=== PATIENT | male | born 1995 | race African-American/Black ===

== ENCOUNTER 2017-03-26 14:15 | Emergency (ER) | payer SELFPAY ==
[~2017-03-26] VITALS: Ht 190.5 cm; Wt 75.0 kg
[~2017-03-26 14:15] MED LIST: AMOX500T PO; PRED20 PO; Z.0.NO CURRENT MEDS
[2017-03-26 14:16] VITALS: BP 119/70; PULSE 88; RESP 16; TEMP 98.9; O2SAT 98
[2017-03-26] MEDS ORDERED: SODIUM CHLOR 0.9% 1000 ML INJ 1,000 ML IV SCH (16:13)
[2017-03-26] MEDS ORDERED: SODIUM CHLORIDE 0.9% FLUSH 10 ML FLUSH IV FLUSH PRN (16:15)
[2017-03-26] MEDS ORDERED: ONDANSETRON HCL 4 MG/2 ML VIAL IVP ONE (16:15)
--- NOTE | 2017-03-26 16:23 | PD ---
HPI Chief Complaint: Abdominal Pain Time Seen by Provider: 16:08 Travel History International Travel<30 days: No Contact w/Intl Traveler<30days: No Traveled to known affect area: No History of Present Illness HPI 21 year old male presents to the ED for evaluation of 3 day history of N/V/D and abdominal pain. Gradual onset. Worsened by eating. Patient denies accompanying fever, chills, melena, hematochezia, dysuria, penile discharge. He denies sick contacts. He's been treating at home with ibuprofen with no improvement of symptoms. Patient also states that he has lost 15 pounds over "the last week or so." He states that his cat had fleas and he thinks that maybe the fleas bit him and gave him a tapeworm. PFSH Past Medical History Medical History: Denies Significant Hx Diminished Hearing: No Past Surgical History Appendectomy: Yes Social History Alcohol Use: Yes (SOCIAL) Tobacco Use: No (andrew) Substance Use: Yes (POT) Allergies-Medications (Allergen,Severity, Reaction): Coded Allergies: No Known Allergies (Unverified , 03/26/17) Reported Meds & Prescriptions Reported Meds & Active Scripts Active Reglan (Metoclopramide HCl) 10 Mg Tab 10 Mg PO TIDAC 7 Days Cipro (Ciprofloxacin HCl) 250 Mg Tab 250 Mg PO BID Lortab (Hydrocodone-Acetaminophen) 5-325 Mg Tab 1 Tab PO Q6H PRN Protonix (Pantoprazole Sodium) 40 Mg Tab 40 Mg PO DAILY Bentyl (Dicyclomine HCl) 10 Mg Cap 20 Mg PO QID 7 Days Deltasone (Prednisone) 20 Mg Tab 20 Mg PO BID Amoxicillin 500 Mg Cap 500 Mg PO TID Reported No Current Meds (Miscellaneous Medication) [facility] Review of Systems Except as stated in HPI: all other systems reviewed are Neg Physical Exam Narrative GENERAL: Well-nourished, well-developed nontoxic-appearing thin black male in no acute distress. SKIN: Focused skin assessment warm/dry. HEAD: Normocephalic. EYES: No scleral icterus. No injection or drainage. NECK: Supple, trachea midline. No JVD or lymphadenopathy. CARDIOVASCULAR: Regular rate and rhythm without murmurs, gallops, or rubs. RESPIRATORY: Breath sounds clear and equal bilaterally. No accessory muscle use. GASTROINTESTINAL: Abdomen soft, non-tender, nondistended. Palpable masses. Negative Bower's. Active bowel sounds. RECTAL EXAM: No masses or tenderness, stool is mucous, pink tinged. Guaiac positive. MUSCULOSKELETAL: No cyanosis, or edema. BACK: Nontender without obvious deformity. No CVA tenderness. Data Data Last Documented VS Vital Signs Date Time Temp Pulse Resp B/P (MAP) Pulse Ox O2 Delivery O2 Flow Rate FiO2 03/26/17 19:06 03/26/17 16:13 18 03/26/17 14:16 98.9 88 98 Orders Orders Complete Blood Count With Diff (03/26/17 16:13) Comprehensive Metabolic Panel (03/26/17 16:13) Lipase (03/26/17 16:13) Lactic Acid (03/26/17 16:13) Urinalysis - C+S If Indicated (03/26/17 16:13) Iv Access Insert/Monitor (03/26/17 16:13) Ecg Monitoring (03/26/17 16:13) Oximetry (03/26/17 16:13) NPO (03/26/17 16:13) Ondansetron Inj (Zofran Inj) (03/26/17 16:15) Sodium Chlor 0.9% 1000 Ml Inj (Ns 1000 M (03/26/17 16:13) Sodium Chloride 0.9% Flush (Ns Flush) (03/26/17 16:15) Famotidine Inj (Pepcid Inj) (03/26/17 16:30) Al-Mag Hy-Si 40-40-4 Mg/Ml Liq (Mag-Al P (03/26/17 16:30) Lidocaine 2% Viscous (Xylocaine 2% Visco (03/26/17 16:30) Mandatory Outpatient Referral (03/26/17 17:55) Potassium Chloride (Kcl) (03/26/17 18:45) Labs Laboratory Tests Test 03/26/17 16:21 03/26/17 17:55 White Blood Count 16.9 TH/MM3 Red Blood Count 5.19 MIL/MM3 Hemoglobin 12.9 GM/DL Hematocrit 39.5 % Mean Corpuscular Volume 76.2 FL Mean Corpuscular Hemoglobin 24.9 PG Mean Corpuscular Hemoglobin Concent 32.6 % Red Cell Distribution Width 15.7 % Platelet Count 435 TH/MM3 Mean Platelet Volume 7.6 FL Neutrophils (%) (Auto) 72.5 % Lymphocytes (%) (Auto) 14.6 % Monocytes (%) (Auto) 12.0 % Eosinophils (%) (Auto) 0.6 % Basophils (%) (Auto) 0.3 % Neutrophils # (Auto) 12.2 TH/MM3 Lymphocytes # (Auto) 2.5 TH/MM3 Monocytes # (Auto) 2.0 TH/MM3 Eosinophils # (Auto) 0.1 TH/MM3 Basophils # (Auto) 0.1 TH/MM3 CBC Comment DIFF FINAL Differential Comment Blood Urea Nitrogen 12 MG/DL Creatinine 0.99 MG/DL Random Glucose 77 MG/DL Total Protein 8.1 GM/DL Albumin 3.2 GM/DL Calcium Level 9.1 MG/DL Alkaline Phosphatase 87 U/L Aspartate Amino Transf (AST/SGOT) 8 U/L Alanine Aminotransferase (ALT/SGPT) 13 U/L Total Bilirubin 0.6 MG/DL Sodium Level 137 MEQ/L Potassium Level 3.2 MEQ/L Chloride Level 101 MEQ/L Carbon Dioxide Level 26.6 MEQ/L Anion Gap 9 MEQ/L Estimat Glomerular Filtration Rate 114 ML/MIN Lactic Acid Level 1.7 mmol/L Lipase 516 U/L Urine Color YELLOW Urine Turbidity CLEAR Urine pH 6.0 Urine Specific [place] 1.025 Urine Protein 30 mg/dL Urine Glucose (UA) NEG mg/dL Urine Ketones 10 mg/dL Urine Occult Blood TRACE Urine Nitrite NEG Urine Bilirubin NEG Urine Urobilinogen LESS THAN 2.0 MG/DL Urine Leukocyte Esterase NEG Urine RBC 2 /hpf Urine WBC 8 /hpf Urine Squamous Epithelial Cells <1 /hpf Urine Mucus FEW /lpf Microscopic Urinalysis Comment CULT NOT INDICATED MDM Medical Decision Making Medical Screen Exam Complete: Yes Emergency Medical Condition: Yes Differential Diagnosis GERD versus PUD versus gastritis versus gastroenteritis versus pancreatitis versus GI bleed versus other Narrative Course 21 year old male presents to the ED for evaluation of 3 day history of N/V/D and abdominal pain. Gradual onset. Worsened by eating. Patient denies accompanying fever, chills, melena, hematochezia, dysuria, penile discharge. He denies sick contacts. Patient also states that he has lost 15 pounds over "the last week or so." Vitals reviewed. Physical exam reveals a thin,nontoxic appearing black male in no acute distress. Abdominal exam is completely benign. Patient does have a guaiac positive rectal exam. IV was established. Patient was administered 1 L normal saline, 4 mg Zofran, Pepcid, GI cocktail. CBC: WBC 16.9 with left shift. Hemoglobin 12.9. CMP: Potassium 3.2. Albumin 3.2. Bilirubin 0.6. BUN 12, creatinine 0.99. Lactic acid 1.7. Lipase 516. UA: No culture indicated. I discussed the patient with Dr. Palmer. Dr. Palmer evaluated the patient and recommended pain control, atraumatic coverage for gastroenteritis, outpatient follow-up with the hydrometeorologist. I discussed this plan with the patient who is agreeable. He is prescribed Cipro, Bentyl, Reglan, Protonix and Lortab. A mandatory outpatient consult was placed with Dr. Monge. Discussed reasons to return to the ED. Patient acknowledged understanding of the discharge instructions. He is stable and discharged home. [facility] Point of Care Internal Pos. & Neg. Controls: Passed Fecal Specimen Occult Blood: Positive Diagnosis Primary Impression: GI bleed Qualified Codes: K29.71 - Gastritis, unspecified, with bleeding Additional Impression: Gastroenteritis Referrals: Nancy Monge MD Patient Instructions: Diet for Stomach Ulcers and Gastritis (ED), Gastroenteritis (ED), Gastrointestinal Bleeding (ED), General Instructions Additional Instructions: Rest, hydrate. Begin antibiotics today. Take medication as prescribed. Do not take ibuprofen for pain at home. An outpatient consult has been placed on your behalf. The hospital or the GI provider's office will call you to set up an outpatient appointment. RETURN TO THE ED IF YOUR SYMPTOMS WORSEN, particularly over the next 8 hours. Return to the ED for any urgent or emergent medical condition. Med/Other Pt SpecificInfo: Prescription(s) given Scripts Metoclopramide (Reglan) 10 Mg Tab 10 MG PO TIDAC for 7 Days, TAB 0 Refills Prov: Wilfredo Palmer MD 03/26/17 Ciprofloxacin (Cipro) 250 Mg Tab 250 MG PO BID for Infection, #6 TAB 0 Refills Prov: Wilfredo Palmer MD 03/26/17 Hydrocodone-Acetaminophen (Lortab) 5-325 Mg Tab 1 TAB PO Q6H Y for PAIN, #15 TAB 0 Refills Prov: Wilfredo Palmer MD 03/26/17 Pantoprazole (Protonix) 40 Mg Tab 40 MG PO DAILY for Reflux, #15 TAB 0 Refills Prov: Wilfredo Palmer MD 03/26/17 Dicyclomine (Bentyl) 10 Mg Cap 20 MG PO QID for Bowel Management for 7 Days, CAP 0 Refills Prov: Wilfredo Palmer MD 03/26/17 Disposition: 01 DISCHARGE HOME Condition: Stable Carmita Delgado Mar 26, 2017 16:23
[2017-03-26] MEDS ORDERED: ALUMINUM/MAGNESIUM/SIMETH 30 ML CUP PO ONE (16:30)
[2017-03-26] MEDS ORDERED: LIDOCAINE VISCOUS 2% SOLN 15 ML UDC PO ONE (16:30)
[2017-03-26] MEDS ORDERED: FAMOTIDINE 20 MG/2 ML VIAL IV PUSH ONE (16:30)
[2017-03-26 16:48] LABS: AUTOMATED NEUTROPHIL # 12.2 TH/MM3 (1.8-7.7); BASOPHIL # 0.1 TH/MM3 (0-0.2); BASOPHIL % 0.3 % (0.0-2.0); EOSINOPHIL # 0.1 TH/MM3 (0-0.4); EOSINOPHIL % 0.6 % (0.0-4.0); HEMATOCRIT 39.5 % (39.0-51.0); HEMO FLAGS DIFF FINAL; LYMPH % 14.6 % (9.0-44.0); LYMPHOCYTE # 2.5 TH/MM3 (1.0-4.8); MEAN CELL VOLUME 76.2 FL (80.0-100.0); MEAN CORPUSCULAR HEMOGLOBIN 24.9 PG (27.0-34.0); MEAN CORPUSCULAR HGB CONC 32.6 % (32.0-36.0); NEUT % 72.5 % (16.0-70.0); PLATELET COUNT 435 TH/MM3 (150-450); RED BLOOD COUNT 5.19 MIL/MM3 (4.50-5.90); RED CELL DISTRIBUTION WIDTH 15.7 % (11.6-17.2); WHITE BLOOD COUNT 16.9 TH/MM3 (4.0-11.0)
[2017-03-26 17:01] LABS: ALT (GPT) 13 U/L (12-78); ANION GAP 9 MEQ/L (5-15); AST (GOT) 8 U/L (15-37); BICARBONATE 26.6 MEQ/L (21.0-32.0); BLOOD UREA NITROGEN 12 MG/DL (7-18); CHLORIDE 101 MEQ/L (98-107); GLOMERULAR FILTRATION RATE 114 ML/MIN (>89); POTASSIUM 3.2 MEQ/L (3.5-5.1); SODIUM (NA) 137 MEQ/L (136-145)
[2017-03-26 17:03] LABS: ALKALINE PHOSPHATASE 87 U/L (45-117); TOTAL BILIRUBIN ADULT 0.6 MG/DL (0.2-1.0)
--- NOTE | 2017-03-26 17:55 | PD ---
Data Data Last Documented VS Vital Signs Date Time Temp Pulse Resp B/P (MAP) Pulse Ox O2 Delivery O2 Flow Rate FiO2 03/26/17 19:06 03/26/17 16:13 18 03/26/17 14:16 98.9 88 98 Orders Orders Complete Blood Count With Diff (03/26/17 16:13) Comprehensive Metabolic Panel (03/26/17 16:13) Lipase (03/26/17 16:13) Lactic Acid (03/26/17 16:13) Urinalysis - C+S If Indicated (03/26/17 16:13) Iv Access Insert/Monitor (03/26/17 16:13) Ecg Monitoring (03/26/17 16:13) Oximetry (03/26/17 16:13) NPO (03/26/17 16:13) Ondansetron Inj (Zofran Inj) (03/26/17 16:15) Sodium Chlor 0.9% 1000 Ml Inj (Ns 1000 M (03/26/17 16:13) Sodium Chloride 0.9% Flush (Ns Flush) (03/26/17 16:15) Famotidine Inj (Pepcid Inj) (03/26/17 16:30) Al-Mag Hy-Si 40-40-4 Mg/Ml Liq (Mag-Al P (03/26/17 16:30) Lidocaine 2% Viscous (Xylocaine 2% Visco (03/26/17 16:30) Mandatory Outpatient Referral (03/26/17 17:55) Potassium Chloride (Kcl) (03/26/17 18:45) Labs Laboratory Tests Test 03/26/17 16:21 03/26/17 17:55 White Blood Count 16.9 TH/MM3 Red Blood Count 5.19 MIL/MM3 Hemoglobin 12.9 GM/DL Hematocrit 39.5 % Mean Corpuscular Volume 76.2 FL Mean Corpuscular Hemoglobin 24.9 PG Mean Corpuscular Hemoglobin Concent 32.6 % Red Cell Distribution Width 15.7 % Platelet Count 435 TH/MM3 Mean Platelet Volume 7.6 FL Neutrophils (%) (Auto) 72.5 % Lymphocytes (%) (Auto) 14.6 % Monocytes (%) (Auto) 12.0 % Eosinophils (%) (Auto) 0.6 % Basophils (%) (Auto) 0.3 % Neutrophils # (Auto) 12.2 TH/MM3 Lymphocytes # (Auto) 2.5 TH/MM3 Monocytes # (Auto) 2.0 TH/MM3 Eosinophils # (Auto) 0.1 TH/MM3 Basophils # (Auto) 0.1 TH/MM3 CBC Comment DIFF FINAL Differential Comment Blood Urea Nitrogen 12 MG/DL Creatinine 0.99 MG/DL Random Glucose 77 MG/DL Total Protein 8.1 GM/DL Albumin 3.2 GM/DL Calcium Level 9.1 MG/DL Alkaline Phosphatase 87 U/L Aspartate Amino Transf (AST/SGOT) 8 U/L Alanine Aminotransferase (ALT/SGPT) 13 U/L Total Bilirubin 0.6 MG/DL Sodium Level 137 MEQ/L Potassium Level 3.2 MEQ/L Chloride Level 101 MEQ/L Carbon Dioxide Level 26.6 MEQ/L Anion Gap 9 MEQ/L Estimat Glomerular Filtration Rate 114 ML/MIN Lactic Acid Level 1.7 mmol/L Lipase 516 U/L Urine Color YELLOW Urine Turbidity CLEAR Urine pH 6.0 Urine Specific [place] 1.025 Urine Protein 30 mg/dL Urine Glucose (UA) NEG mg/dL Urine Ketones 10 mg/dL Urine Occult Blood TRACE Urine Nitrite NEG Urine Bilirubin NEG Urine Urobilinogen LESS THAN 2.0 MG/DL Urine Leukocyte Esterase NEG Urine RBC 2 /hpf Urine WBC 8 /hpf Urine Squamous Epithelial Cells <1 /hpf Urine Mucus FEW /lpf Microscopic Urinalysis Comment CULT NOT INDICATED MDM Medical Record Reviewed: Yes Supervised Visit with SUZAN: Yes Narrative Course CBC & BMP Diagram 03/26/17 16:21 Total Protein 8.1, Albumin 3.2 L, Calcium Level 9.1, Alkaline Phosphatase 87, Aspartate Amino Transf (AST/SGOT) 8 L, Alanine Aminotransferase (ALT/SGPT) 13, Total Bilirubin 0.6 I, Dr. Palmer, have reviewed the advance practice practitioner's documentation and am in agreement, met with the patient face to face, made the diagnosis, and the medical decision making was done by me. *My assessment and Findings: Presentation concerning for gastroenteritis with pancreatitis Scripts as below Follow up with GI Return precautions discussed. Please see PA note for additional information. Diagnosis Primary Impression: GI bleed Additional Impression: Gastroenteritis Referrals: Nancy Monge MD Patient Instructions: General Instructions, Gastrointestinal Bleeding (ED), Diet for Stomach Ulcers and Gastritis (ED), Gastroenteritis (ED) Additional Instruction: Rest, hydrate. Begin antibiotics today. Take medication as prescribed. Do not take ibuprofen for ear pain at home. Scripts Metoclopramide (Reglan) 10 Mg Tab 10 MG PO TIDAC for 7 Days, TAB 0 Refills Prov: Wilfredo Palmer MD 03/26/17 Ciprofloxacin (Cipro) 250 Mg Tab 250 MG PO BID for Infection, #6 TAB 0 Refills Prov: Wilfredo Palmer MD 03/26/17 Hydrocodone-Acetaminophen (Lortab) 5-325 Mg Tab 1 TAB PO Q6H Y for PAIN, #15 TAB 0 Refills Prov: Wilfredo Palmer MD 03/26/17 Pantoprazole (Protonix) 40 Mg Tab 40 MG PO DAILY for Reflux, #15 TAB 0 Refills Prov: Wlifredo Palmer MD 03/26/17 Dicyclomine (Bentyl) 10 Mg Cap 20 MG PO QID for Bowel Management for 7 Days, CAP 0 Refills Prov: Wilfredo Palmer MD 03/26/17 Disposition: 01 DISCHARGE HOME Condition: Stable Wilfredo Palmer MD Mar 26, 2017 17:55
[2017-03-26] MEDS ORDERED: PROT40TA PO (18:29)
[2017-03-26] MEDS ORDERED: DICY10 PO (18:29)
[2017-03-26] MEDS ORDERED: CIPR250T52 PO (18:29)
[2017-03-26] MEDS ORDERED: REGL10TA5 PO (18:29)
[2017-03-26] MEDS ORDERED: HYDR-3533 PO (18:29)
[2017-03-26 18:32] LABS: BLOOD, URINE TRACE (NEG); COMMENT (UR) CULT NOT INDICATED; CULTURE IF INDICATED CULT NOT INDICATED; GLUCOSE,URINE NEG (NEG); KETONE, URINE 10 mg/dL (NEG); MUCUS URINE FEW /lpf (OCC); NITRITE,URINE NEG (NEG); SQUAMOUS EPITHELIAL CELL URINE <1 /hpf (0-5); URINE COLOR YELLOW (YELLW/STRAW)
[2017-03-26] MEDS ORDERED: POTASSIUM CHLORIDE 20 MEQ CONTROLLED RELEASE TAB PO ONE (18:45)
== END 2017-03-26 19:12 | disposition home or self-care (01) ==
LOC: NEPD 14:15
DX: K92.2 Gastrointestinal hemorrhage, unspecified (principal); K52.9 Noninfective gastroenteritis and colitis, unspecified; Z79.899 Other long term (current) drug therapy
CPT/HCPCS: 80053; 81001; 83605; 83690; 85025; 96361; 96374; 96375; 99284; J2405; J7030

== ENCOUNTER 2017-03-27 07:03 | Emergency (ER) | payer SELFPAY ==
[~2017-03-27] VITALS: Ht 190.5 cm; Wt 75.0 kg
[~2017-03-27 07:03] MED LIST changes: +CIPR250T52 PO; +DICY10 PO; +HYDR-3533 PO; +PROT40TA PO; +REGL10TA5 PO
[2017-03-27 07:05] VITALS: BP 128/72; PULSE 90; RESP 15; TEMP 98.4; O2SAT 96
[2017-03-27] MEDS ORDERED: ALUMINUM/MAGNESIUM/SIMETH 30 ML CUP PO ONE (07:45)
[2017-03-27] MEDS ORDERED: ACETAMINOPHEN/HYDROcodone 325 MG/5 MG TAB PO ONE (07:45)
[2017-03-27] MEDS ORDERED: ONDANSETRON ODT 4 MG TAB PO ONE (07:45)
[2017-03-27] MEDS ORDERED: LIDOCAINE VISCOUS 2% SOLN 15 ML UDC PO ONE (07:45)
--- NOTE | 2017-03-27 08:03 | PD ---
HPI Chief Complaint: Abdominal Pain Time Seen by Provider: 07:19 Travel History International Travel<30 days: No Contact w/Intl Traveler<30days: No Traveled to known affect area: No History of Present Illness HPI Patient is a 21-year-old male presents emergency department for evaluation of epigastric pain nausea and vomiting with blood streaking in it for the past couple weeks. Patient was here last night seen by provider and did have minimal elevation of white blood cell count but otherwise had negative workup. Was feeling better. He has not yet had a chance to fill his medications as the pharmacies were closed the left the hospital. States that he went home and had pasta with some tomatoes. He states after eating that he had an episode of emesis with blood streaking, PFSH Past Medical History Diminished Hearing: No Ulcer: Yes Past Surgical History Appendectomy: Yes Social History Alcohol Use: Yes (SOCIAL) Tobacco Use: No (andrew) Substance Use: Yes (POT) Allergies-Medications (Allergen,Severity, Reaction): Coded Allergies: No Known Allergies (Unverified , 03/27/17) Reported Meds & Prescriptions Reported Meds & Active Scripts Active Reglan (Metoclopramide HCl) 10 Mg Tab 10 Mg PO TIDAC 7 Days Cipro (Ciprofloxacin HCl) 250 Mg Tab 250 Mg PO BID Lortab (Hydrocodone-Acetaminophen) 5-325 Mg Tab 1 Tab PO Q6H PRN Protonix (Pantoprazole Sodium) 40 Mg Tab 40 Mg PO DAILY Bentyl (Dicyclomine HCl) 10 Mg Cap 20 Mg PO QID 7 Days Review of Systems Except as stated in HPI: all other systems reviewed are Neg Physical Exam Narrative GENERAL: Well-developed, tall male in no obvious distress. Quite pleasant. SKIN: Focused skin assessment warm/dry. HEAD: Atraumatic. Normocephalic. EYES: Pupils equal and round. No scleral icterus. No injection or drainage. ENT: No nasal bleeding or discharge. Mucous membranes pink and moist. NECK: Trachea midline. No JVD. CARDIOVASCULAR: Regular rate and rhythm. No murmur appreciated. RESPIRATORY: No accessory muscle use. Clear to auscultation. Breath sounds equal bilaterally. GASTROINTESTINAL: Abdomen soft, non-tender, nondistended. Hepatic and splenic margins not palpable. No rebound no percussive tenderness. No emesis while in the emergency department. MUSCULOSKELETAL: No obvious deformities. No clubbing. No cyanosis. No edema. NEUROLOGICAL: Awake and alert. No obvious cranial nerve deficits. Motor grossly within normal limits. Normal speech. PSYCHIATRIC: Appropriate mood and affect; insight and judgment normal. Data Data Last Documented VS Vital Signs Date Time Temp Pulse Resp B/P (MAP) Pulse Ox O2 Delivery O2 Flow Rate FiO2 03/27/17 09:40 03/27/17 07:05 98.4 90 15 96 Orders Orders Abdomen, Flat & Upright (03/27/17 ) Al-Mag Hy-Si 40-40-4 Mg/Ml Liq (Mag-Al P (03/27/17 07:45) Lidocaine 2% Viscous (Xylocaine 2% Visco (03/27/17 07:45) Ondansetron Odt (Zofran Odt) (03/27/17 07:45) Acetamin-Hydrocod 325-5 Mg ([place] 5-325 (03/27/17 07:45) MDM Medical Decision Making Medical Screen Exam Complete: Yes Emergency Medical Condition: Yes Differential Diagnosis gastritis, Yasmin-Taveras tear, peptic ulcer disease. Narrative Course patient roomed in emergency department, he appears well has benign abdomen. Labs reviewed from earlier today did show minimally elevated white count. He does have a history of abdominal surgeries in the past and I think the KUB is indicated to exclude obstructive bowel gas pattern was performed negative. The patient was given GI cocktail was feeling much better. Discussed with him CAT scan is a possibility given his elevated white blood cell count but I do not believe indicated at this time given his benign abdomen and the risk of radiation outweighs the potential benefits. He verbalized understanding and agreement. Discussed need for follow-up for consideration of endoscopy with gastroenterology. Discussed need to fill his medications from yesterday. Discussed return to ED criteria and avoidance of acidic and spicy foods. Diagnosis Primary Impression: Abdominal pain Additional Impression: Gastritis Referrals: Nancy Monge MD Disposition: 01 DISCHARGE HOME Condition: Stable Ryan Lemus MD Mar 27, 2017 08:03
--- NOTE | 2017-03-27 08:25 | RADRPT ---
EXAM DATE/TIME: 03/27/2017 08:09 [facility] COMPARISON: No previous studies available for comparison. INDICATIONS : Patient complains of abdominal pain and vomiting. MEDICAL HISTORY : None. SURGICAL HISTORY : Appendectomy. ENCOUNTER: Initial ACUITY: 1 week PAIN SCORE: 10/10 LOCATION: Abdomen FINDINGS: Supine and upright views of the abdomen were performed. The abdominal bowel gas pattern is normal. No air fluid levels are seen. No abnormal masses, calcifications, or organomegaly is seen. The visu alized lower lungs are clear. No evidence of free intraperitoneal gas. The osseous structures are u nremarkable. CONCLUSION: 1. Benign-appearing KUB. Wilfredo Agudelo MD on March 27, 2017 at 8:23 Board Certified Radiologist. This report was verified electronically.
== END 2017-03-27 09:41 | disposition home or self-care (01) ==
LOC: NEPC 07:03
DX: R10.13 Epigastric pain (principal); K29.70 Gastritis, unspecified, without bleeding; F12.90 Cannabis use, unspecified, uncomplicated
CPT/HCPCS: 74020; 99283